=== PATIENT | male | born 1995 | race Caucasian/White ===

== ENCOUNTER 2016-10-29 14:56 | Emergency (ER) | payer OTHER ==
[~2016-10-29] VITALS: Ht 185.4 cm; Wt 84.8 kg
[2016-10-29 15:09] VITALS: BP 170/100; PULSE 83; TEMP 36.3; O2SAT 96; Ht 185.4 cm; Wt 84.8 kg
[2016-10-29] MEDS ORDERED: HYDROCODONE/ACETAMOPHEN 5/325MG TAB PO STA (15:19)
[2016-10-29] MEDS ORDERED: IBUP-1050 PO (15:22)
--- NOTE | 2016-10-29 15:46 | DIAGNOSTIC IMAGING REPORT ---
RIGHT KNEE 1 OR 2 VIEWS ROUTINE CLINICAL HISTORY: Right knee pain. Trauma. COMPARISON: None. DISCUSSION: No fractures or dislocations are visualized. There is a suspected small suprapatellar joint effusion. IMPRESSION: Suspected small joint effusion. No fractures are visualized. Electronically signed by: Kvng Taylor M.D. 10/29/2016 3:44 PM Dictated Date/Time: 10/29/2016 3:43 PM
--- NOTE | 2016-10-29 16:04 | EMERGENCY ROOM VISIT NOTE ---
ED Visit Note First contact with patient: 15:13 CHIEF COMPLAINT: Right Knee injury HISTORY OF PRESENT ILLNESS: This 21-year-old male presents the ER with chief complaint of right knee injury. The patient states that he was playing catch yesterday and somehow twisted his knee and fell to the ground. The patient states he stayed on the ground for approximately 20 minutes and then he was able to get up and have minimal weightbearing. He now is complaining of increased pain with weightbearing and it feels like it is going to give out again. The patient states that he heard a "pop" at the time of injury. The patient denies any numbness and tingling in his lower extremity. The patient denies any prior injury to his knee. The patient has been taken ibuprofen for pain. Last dose was at 11 AM of 800 mg. REVIEW OF SYSTEMS: 6 system review was performed and was negative unless stated otherwise in history of present illness. PMH: The patient is healthy; wisdom tooth removal SOCIAL HISTORY: Patient is a [employer] student. The patient denies tobacco use but admits to occasional alcohol use. PHYSICAL EXAM: Vital Signs: Were reviewed Reviewed Nurse's notes. GEN.: 21-year -old white male appears in no acute distress. MENTAL STATUS: Alert, oriented, and cooperative. RIGHT KNEE: No erythema or edema noted. No gross bony abnormality noted. The patient has tenderness to palpation over both the medial and the lateral joint space. There is no joint effusion. The range of motion is limited secondary to pain. There is no ligamentous instability. The skin is normal and intact. The patient walks with an antalgic gait. EMERGENCY DEPARTMENT COURSE: The patient was evaluated. The patient was given Capay 5/325 mg one tablet by mouth for pain. X-ray of the right knee was ordered and interpreted by the radiologist and myself. DIAGNOSTICS:RIGHT KNEE 1 OR 2 VIEWS ROUTINE CLINICAL HISTORY: Right knee pain. Trauma. COMPARISON: None. DISCUSSION: No fractures or dislocations are visualized. There is a suspected small suprapatellar joint effusion. IMPRESSION: Suspected small joint effusion. No fractures are visualized. Electronically signed by: Kvng Taylor M.D. 10/29/2016 3:44 PM The patient was informed of the findings. The patient was placed in a knee immobilizer and discharged home in stable condition. DIAGNOSIS: Sprained right Knee DISCHARGE INSTRUCTIONS: Knee immobilizer for 3 - 5 days until the pain subsides , ibuprofen, 600 mg every 6 hours if needed for pain. Take Capay as needed for more severe pain. Do not drive while taking the Capay. Ice to and elevation to the knee frequently for the next 24 hours. Stay off the leg as much as possible over the next several days. If symptoms are not improving in 3-4 days , follow-up with [facility] for referral to orthopedics. Current/Historical Medications Scheduled Ibuprofen (Advil), 800 MG PO BID Vital Signs Date Time Temp Pulse Resp B/P Pulse Ox O2 Delivery O2 Flow Rate FiO2 10/29/16 15:09 36.3 83 18 170/100 96 Room Air Medications Administered Medications (Trade) Dose Ordered Sig/Radha Route Start Time Stop Time Status Last Admin Dose Admin Acetaminophen/ Hydrocodone Bitart (Capay 5/325 Tab) 1 tab NOW STAT PO 10/29/16 15:19 10/29/16 15:21 DC 10/29/16 15:19 1 TAB Departure Information Referrals [facility] (PCP) Patient Instructions [facility]
[2016-10-29] MEDS ORDERED: HYDR-5688 PO (16:05)
== END 2016-10-29 16:13 | disposition home or self-care (01) ==
LOC: C.EDB 14:59 → C.EDD 16:13
DX: S83.91XA Sprain of unspecified site of right knee, initial encounter (principal); X50.1XXA Overexertion from prolonged static or awkward postures, initial encounter